=== PATIENT | male | born 1955 | race Caucasian/White ===

== ENCOUNTER 2022-02-20 12:18 | Emergency (ER) | payer OTHER ==
--- OUTSIDE RECORDS SUMMARY | 2022-02-20 12:21 | XMS REPORT | Continuity of Care Document ---
:1955 Author Organization [facility] t Address [address] [place] [address] Care Team Providers Name Role Phone SHA LEONG Primary Care Physician Unavailable Stevenson MACHADO Attending Clinician Unavailable Problems This patient has no known problems. Allergies, Adverse Reactions, Alerts Allergy Allergy Status Severity Reaction(s) Onset Inactive Treating Comm ents Source Name Type Date Date Clinician [facility] Active Rash NPI:[id number] [id number] 00:00: 00 Medications This patient has no known medications. Procedures This patient has no known procedures. Encounters Start End Encounter Admission Attending Care Care Encounter Source Date/Time Date/Time Type Type Clinicians Facility Department ID 2021-01-09 2021-01-10 Outpatient Vika MACHADO [facility] [id number] NPI:[id number] 15:50:00 09:29:44 AUREA [id number] 1 2020-12-12 2020-12-12 Outpatient Vika MACHADO [facility] 50242 [id number] NPI:[id number] 14:45:00 14:45:00 AUREA [id number] 1 Results This patient has no known results.
[2022-02-20] MEDS ORDERED: DOXYCYCLINE 100 MG CAP PO ONE (12:40)
[2022-02-20] MEDS ORDERED: LIDOCAINE 1% 20 ML MDV ONE (12:40)
[2022-02-20] MEDS ORDERED: TETANUS & DIPHTHERIA TOX,ADULT 0.5 ML VIAL ONE (12:41)
--- NOTE | 2022-02-20 13:26 | EDPHYS ---
Physician Documentation [facility] Name: Ryan Obrien Age: 67 yrs Sex: Male : 1955 Arrival Date: 02/20/2022 Time: 12:19 Bed 25 Private MD: Vicente Nichols T ED Physician Jesus Combs HPI: 02/20 13:15 This 67 yrs old Male presents to ER via Ambulatory with complaints of Finger meliton Injury. 13:15 Trauma demographics: County: The injury occurred in [place]. meliton Historical: - Allergies: 12:32 Sulfa (Sulfonamide Antibiotics); ld1 - Home Meds: 12:32 None [Active]; ld1 - PMHx: 12:32 None; ld1 - PSHx: 12:32 None; ld1 - Immunization history:: Adult Immunizations up to date, Client reports receiving the 2nd dose of the Covid vaccine. - Social history:: Smoking status: Patient denies any tobacco usage or history of. Patient/guardian denies using alcohol. ROS: 13:16 Constitutional: Negative for fever, chills, and weight loss, Eyes: Negative for injury, meliton pain, redness, and discharge, ENT: Negative for injury, pain, and discharge, Neck: Negative for injury, pain, and swelling, Cardiovascular: Negative for chest pain, palpitations, and edema, Respiratory: Negative for shortness of breath, cough, wheezing, and pleuritic chest pain, Abdomen/GI: Negative for abdominal pain, nausea, vomiting, diarrhea, and constipation, Back: Negative for injury and pain, : Negative for injury, bleeding, discharge, and swelling, Skin: Negative for injury, rash, and discoloration, Neuro: Negative for headache, weakness, numbness, tingling, and seizure, Psych: Negative for depression, anxiety, suicide ideation, homicidal ideation, and hallucinations, Allergy/Immunology: Negative for hives, rash, and allergies, Endocrine: Negative for neck swelling, polydipsia, polyuria, polyphagia, and marked weight changes, Hematologic/Lymphatic: Negative for swollen nodes, abnormal bleeding, and unusual bruising. 13:16 MS/extremity: Positive for laceration, pain, tenderness, of the palmar aspect of distal phalanx of left little finger, palmar aspect of middle phalanx of left ring finger and palmar aspect of distal phalanx of left thumb. Exam: 13:16 Constitutional: This is a well developed, well nourished patient who is awake, alert, meliton and in no acute distress. Head/Face: Normocephalic, atraumatic. Eyes: Pupils equal round and reactive to light, extra-ocular motions intact. Lids and lashes normal. Conjunctiva and sclera are non-icteric and not injected. Cornea within normal limits. Periorbital areas with no swelling, redness, or edema. ENT: Nares patent. No nasal discharge, no septal abnormalities noted. Tympanic membranes are normal and external auditory canals are clear. Oropharynx with no redness, swelling, or masses, exudates, or evidence of obstruction, uvula midline. Mucous membranes moist. Neck: Trachea midline, no thyromegaly or masses palpated, and no cervical lymphadenopathy. Supple, full range of motion without nuchal rigidity, or vertebral point tenderness. No Meningismus. Chest/axilla: Normal chest wall appearance and motion. Nontender with no deformity. No lesions are appreciated. Cardiovascular: Regular rate and rhythm with a normal S1 and S2. No gallops, murmurs, or rubs. Normal PMI, no JVD. No pulse deficits. Respiratory: Lungs have equal breath sounds bilaterally, clear to auscultation and percussion. No rales, rhonchi or wheezes noted. No increased work of breathing, no retractions or nasal flaring. Abdomen/GI: Soft, non-tender, with normal bowel sounds. No distension or tympany. No guarding or rebound. No evidence of tenderness throughout. Back: No spinal tenderness. No costovertebral tenderness. Full range of motion. Male : Normal genitalia with no discharge or lesions. Skin: Warm, dry with normal turgor. Normal color with no rashes, no lesions, and no evidence of cellulitis. Neuro: Awake and alert, GCS 15, oriented to person, place, time, and situation. Cranial nerves II-XII grossly intact. Motor strength 5/5 in all extremities. Sensory grossly intact. Cerebellar exam normal. Normal gait. Psych: Awake, alert, with orientation to person, place and time. Behavior, mood, and affect are within normal limits. 13:16 Musculoskeletal/extremity: ROM: intact in all extremities, full active range of motion, full passive range of motion, Circulation is intact in all extremities. Sensation intact. Compartment Syndrome exam of affected extremity: is normal. Tendon exam: specific tendon testing normal through active and passive range of motion Vital Signs: 12:31 BP 137 / 88; Pulse 76; Resp 18; Temp 98.1(TE); Pulse Ox 100% on R/A; Weight 112.49 kg; ld1 Height 6 ft. 1 in. (185.42 cm); Pain 5/10; 13:24 BP 140 / 78; Pulse 73; Resp 18; Pulse Ox 100% on R/A; ld1 12:31 Body Mass Index 32.72 (112.49 kg, 185.42 cm) ld1 Laceration: 13:16 Wound Repair of 2.5cm ( 1.0in ) subcutaneous laceration to palmar aspect of middle meliton phalanx of left ring finger. Irregularly shaped.. Skin/tissue flap noted.. Distal neuro/vascular/tendon intact. Anesthesia: Local anesthetic administered with 6 mls of 1% lidocaine. Wound prep: Moderate cleansing by me, Wound explored, Copious irrigation. Skin closed with 4 1-0 Prolene using interrupted sutures and sterile technique. Dressed with Neosporin. Patient tolerated well. MDM: 12:32 Patient medically screened. [facility] 13:20 Data reviewed: vital signs, nurses notes, radiologic studies, plain films. Data [facility] interpreted: cafeteria monitor: rate is 76 beats/min, rhythm is regular, Pulse oximetry: on room air is 100 %. Test interpretation: by ED physician or midlevel provider: plain radiologic studies. Counseling: I had a detailed discussion with the patient and/or guardian regarding: the historical points, exam findings, and any diagnostic results supporting the discharge/admit diagnosis, lab results, radiology results, the need for outpatient follow up, for definitive care, a family practitioner, a hand specialist. 02/20 12:34 Order name: Hand Left 3 View XRAY [facility] 02/20 12:34 Order name: Dressing - Wound; Complete Time: 12:52 [facility] 02/20 12:34 Order name: Gloves, Sterile; Complete Time: 12:52 [facility] 02/20 12:34 Order name: Prolene, Sutures; Complete Time: 12:52 [facility] 02/20 12:34 Order name: Setup Suture Tray; Complete Time: 12:52 meliton Administered Medications: 12:51 Drug: Doxycycline 200 mg Route: PO; ld1 12:52 Drug: Tetanus-Diphtheria Toxoid Adult 0.5 ml {Supervisor [employer]: [employer]. Exp: ld1 12/24/2023. Lot #: [id number]. } Route: IM; Site: right deltoid; 13:51 Drug: Lidocaine (1 %) 10 ml {Note: Administered by Dr. Combs.} Volume: 20 ml; Route: ld1 Infiltration; 13:51 Drug: Bactroban (mupirocin) Ointment 2 % 1 application Route: Topical; Site: affected ld1 area; Disposition Summary: 02/20/22 13:25 Discharge Ordered Location: Home meliton Problem: new meliton Symptoms: have improved meliton Condition: Stable meliton Diagnosis - Laceration without foreign body of left hand, initial encounter meliton Followup: meliton - With: - When: 2 - 3 days - Reason: Recheck today's complaints, Continuance of care, Re-evaluation by your physician Followup: meliton - With: - When: 2 - 3 days - Reason: Recheck today's complaints, Continuance of care, Re-evaluation by your physician Discharge Instructions: - Discharge Summary Sheet meliton - Laceration Care, Adult meliton - Nonsutured Laceration Care meliton - Laceration Care, Adult, [id number] [facility] Forms: - Medication Reconciliation Form meliton - Thank You Letter meliton - Antibiotic Education meliton - Prescription Opioid Use meliton Prescriptions: - Doxycycline Hyclate 100 mg Oral Tablet - take 1 tablet by ORAL route every 12 hours; 20 tablet; Refills: 0, Product [facility] Selection Permitted - Tylenol-Codeine #3 300 mg-30 mg Oral - take 2 tablet by ORAL route every 6 hours; 20 tablet; Refills: 0, Product [facility] Selection Permitted - Centany 2 % Topical ointment - apply 1 application by TOPICAL route 3 times per day; 30 gram; Refills: 0, jr8 Product Selection Permitted Signatures: Dispatcher [employer] Jesus Carroll MD MD cha Dibbern, Lauren, RN RN ld1
--- NOTE | 2022-02-20 13:26 | ER ---
Nurse's Notes [facility] Name: Ryan Obrien Age: 67 yrs Sex: Male : 1955 Arrival Date: 02/20/2022 Time: 12:19 Bed 25 Private MD: Vicente Nichols T Diagnosis: Laceration without foreign body of left hand, initial encounter Presentation: 02/20 12:31 Chief complaint: Patient states: Fishing today in [employer], stood [place] on [place], ld1 slipped and fell. Laceration to left hand - middle finger, pointer finger and 5th finger. Coronavirus screen: At this time, the client does not indicate any symptoms associated with coronavirus-19. Ebola Screen: No symptoms or risks identified at this time. Initial Sepsis Screen: Does the patient meet any 2 criteria? No. Patient's initial sepsis screen is negative. Does the patient have a suspected source of infection? No. Patient's initial sepsis screen is negative. Risk Assessment: Do you want to hurt yourself or someone else? Patient reports no desire to harm self or others. Onset of symptoms was February 20, 2022 at 12:32. 12:31 Method Of Arrival: Ambulatory ld1 12:31 Acuity: CASSY 4 ld1 Triage Assessment: 12:32 General: Appears in no apparent distress. comfortable, Behavior is calm, cooperative, ld1 appropriate for age. Pain: Complains of pain in left hand Pain does not radiate. Pain currently is 5 out of 10 on a pain scale. EENT: No signs and/or symptoms were reported regarding the EENT system. Neuro: Level of Consciousness is awake, alert, obeys commands, Oriented to person, place, time, situation, Appropriate for age. Cardiovascular: Capillary refill < 3 seconds Patient's skin is warm and dry. Respiratory: Airway is patent Respiratory effort is even, unlabored. GI: Abdomen is flat, non-distended. : No signs and/or symptoms were reported regarding the genitourinary system. Derm: No signs and/or symptoms reported regarding the dermatologic system. Musculoskeletal: No signs and/or symptoms reported regarding the musculoskeletal system. Injury Description: Laceration sustained to left hand. Historical: - Allergies: 12:32 Sulfa (Sulfonamide Antibiotics); ld1 - Home Meds: 12:32 None [Active]; ld1 - PMHx: 12:32 None; ld1 - PSHx: 12:32 None; ld1 - Immunization history:: Adult Immunizations up to date, Client reports receiving the 2nd dose of the Covid vaccine. - Social history:: Smoking status: Patient denies any tobacco usage or history of. Patient/guardian denies using alcohol. Screenin:33 Abuse screen: Denies threats or abuse. Denies injuries from another. Nutritional ld1 screening: No deficits noted. Tuberculosis screening: No symptoms or risk factors identified. Fall Risk None identified. Assessment: 12:33 Reassessment: See triage assessment. ld1 13:24 Reassessment: Patient appears in no apparent distress at this time. No changes from ld1 previously documented assessment. Patient and/or family updated on plan of care and expected duration. Pain level reassessed. Vital Signs: 12:31 BP 137 / 88; Pulse 76; Resp 18; Temp 98.1(TE); Pulse Ox 100% on R/A; Weight 112.49 kg; ld1 Height 6 ft. 1 in. (185.42 cm); Pain 5/10; 13:24 BP 140 / 78; Pulse 73; Resp 18; Pulse Ox 100% on R/A; ld1 12:31 Body Mass Index 32.72 (112.49 kg, 185.42 cm) ld1 ED Course: 12:19 Patient arrived in ED. am2 12:19 Vicente Nichols MD is Private Physician. am2 12:19 Jesus Combs MD is Attending Physician. meliton 12:31 Manjula Rodriguez RN is Primary Nurse. ld1 12:32 Triage completed. ld1 12:32 Arm band placed on right wrist. ld1 12:33 Patient has correct armband on for positive identification. Placed in gown. Bed in low ld1 position. Call light in reach. Side rails up X2. compliance monitor on. Pulse ox on. NIBP on. Door closed. Noise minimized. Warm blanket given. 12:33 Assist provider with laceration repair using sutures. Set up tray. Performed by Jesus Combs MD. 13:25 Vicente Nichols MD is Referral Physician. meliton 13:25 Aleksandr Cabello MD is Referral Physician. meliton 13:56 Hand Left 3 View XRAY In Process Unspecified. EDMS 14:25 Patient did not have IV access during this emergency room visit. ld1 Administered Medications: 12:51 Drug: Doxycycline 200 mg Route: PO; ld1 12:52 Drug: Tetanus-Diphtheria Toxoid Adult 0.5 ml {Service Consultant: [employer]. Exp: ld1 12/24/2023. Lot #: [id number]. } Route: IM; Site: right deltoid; 13:51 Drug: Lidocaine (1 %) 10 ml {Note: Administered by Dr. Combs.} Volume: 20 ml; Route: ld1 Infiltration; 13:51 Drug: Bactroban (mupirocin) Ointment 2 % 1 application Route: Topical; Site: affected ld1 area; Outcome: 13:25 Discharge ordered by . meliton 14:25 Discharged to home ambulatory. ld1 14:25 Condition: stable 14:25 Discharge instructions given to patient, Instructed on discharge instructions, follow up and referral plans. medication usage, Demonstrated understanding of instructions, follow-up care, medications, Prescriptions given X 3. 14:25 Patient left the ED. ld1 Signatures: Dispatcher [employer] Jesus Carroll MD MD cha Moreno, Amanda am2 Dibbern, Lauren, RN RN ld1
[2022-02-20] MEDS ORDERED: MUPIROCIN 2% OINT 22GM TUBE TOP ONE (14:03)
--- NOTE | 2022-02-20 14:06 | RAD REPORT ---
EXAM DESCRIPTION: RAD - Hand Left 3 View - 02/20/2022 1:54 pm CLINICAL HISTORY: PAIN COMPARISON: No comparisons FINDINGS: Soft tissue laceration is seen involving the PIP joint of the fourth and fifth finger. No fracture or radiopaque foreign body evident.
[2022-02-20 14:54] VITALS: TEMP 98.1; O2SAT 100
[2022-02-20 14:55] VITALS: BP 140/78
== END 2022-02-20 14:25 | disposition home or self-care (01) ==
LOC: ER 12:18
PROC: 0JQK0ZZ Repair Left Hand Subcutaneous Tissue and Fascia, Open Approach (ICD-10-PCS; principal; 2022-02-20)
DX: S61.215A Laceration without foreign body of left ring finger without damage to nail, initial encounter (principal); Z88.2 Allergy status to sulfonamides; Z23 Encounter for immunization
CPT/HCPCS: 90471; 90714; 99284